=== PATIENT | male | born 1970 | race African-American/Black ===

== ENCOUNTER 2017-01-15 14:33 | Emergency (ER) | payer OTHER ==
[~2017-01-15] VITALS: Ht 180.3 cm; Wt 110.0 kg
[~2017-01-15 14:33] MED LIST: APIX5TAB PO; ENOX120P SQ; IBUP800T23 PO; INSU1.2I SQ; LANTUS2P SQ; LISI10TA3 PO; NOVOLOGSS SQ; VIST50CA PO
[2017-01-15 14:35] VITALS: BP 181/104; PULSE 88; RESP 17; TEMP 98.8; O2SAT 98
[2017-01-15] MEDS ORDERED: LISI-519 PO (16:44)
[2017-01-15] MEDS ORDERED: NORC5TAB PO (16:44)
[2017-01-15] MEDS ORDERED: KETOROLAC TROMETHAMINE 30 MG/ML (IVP) VIAL IV PUSH ONE (17:00)
[2017-01-15] MEDS ORDERED: ENALAPRILAT 1.25 MG/ML VIAL IV PUSH ONE (17:00)
--- NOTE | 2017-01-15 17:08 | PD ---
HPI Chief Complaint: Skin Problem Time Seen by Provider: 16:58 Travel History International Travel<30 days: No Contact w/Intl Traveler<30days: No Traveled to known affect area: No History of Present Illness HPI Patient is a 46-year-old male presenting to the emergency room for evaluation of bilateral lower extremity pain. Patient states he has diabetic ulcers and has not been able to go to the wound care clinic due to insurance issues. Patient has been changing the dressings himself. He reports increased drainage from the wounds. Additionally patient states that his blood sugars have been elevated, 590 last night, 359 this morning. He is out of his Lantus and NovoLog. He also reports being out of Eliquis for the last 5-6 days as well as lisinopril. Patient denies any fever, chills, chest pain, shortness of breath, headache, abdominal pain, dizziness. He does report frequent urination and increased thirst. PFSH Past Medical History Hx Anticoagulant Therapy: Yes (eliquis) Arthritis: No Asthma: No Autoimmune Disease: No Depression: Yes Heart Rhythm Problems: No Cancer: No High Cholesterol: Yes Chemotherapy: No Chest Pain: Yes Congestive Heart Failure: No COPD: No Cerebrovascular Accident: No Diabetes: Yes Diminished Hearing: No Deep Vein Thrombosis: Yes (BILAT LOWER EXTREMITIES) GERD: No Genitourinary: No Hiatal Hernia: No Hypertension: Yes Immune Disorder: No Kidney Stones: No Medical other: Yes (chronic ulcerations on his legs) Musculoskeletal: No Neurologic: No Psychiatric: Yes Reproductive: No Respiratory: Yes (PE X3) Immunizations Current: Yes Migraines: No Radiation Therapy: No Renal Failure: No Seizures: No Sickle Cell Disease: No Sleep Apnea: No Ulcer: No Past Surgical History Abdominal Surgery: No AICD: No Body Medical Devices: mili filter Cardiac Surgery: Yes (SVC FILTER PLACED IN 2010) Ear Surgery: No Endocrine Surgery: No Eye Surgery: Yes (left eye repair) Genitourinary Surgery: No Gynecologic Surgery: No Oral Surgery: No Pacemaker: No Thoracic Surgery: No Other Surgery: Yes Social History Alcohol Use: No Tobacco Use: No Substance Use: No (DENIES) Allergies-Medications (Allergen,Severity, Reaction): Coded Allergies: Tramadol (Verified Allergy, Mild, 01/15/17) PPD (Verified Allergy, Unknown, 01/15/17) *MDRO Multi-Drug Resistant Organism (Verified Adverse Reaction, Unknown, ) MRSA (wound) - 2010, 2011, 2012, 03/2016, 06/2016 Reported Meds & Prescriptions Reported Meds & Active Scripts Active Bactrim DS (Sulfamethoxazole-Trimethoprim) 800-160 Mg Tab 1 Tab PO BID Keflex (Cephalexin) 500 Mg Cap 500 Mg PO Q12H 10 Days Eliquis (Apixaban) 5 Mg Tab 10 Mg PO BID Lisinopril 10 Mg Tab 10 Mg PO DAILY Eliquis (Apixaban) 5 Mg Tab 5 Mg PO BID Tqake 2 tabs twice a day for 7 days(10mg twice daily for 7 days-each pill is 5mg) and then after 7 days 1 tablet twice daily. Lantus Inj (Insulin Glargine) 1,000 Unit/10 Ml Vial 45 Units SQ HS Novolog Inj (Insulin Aspart) 100 Unit/Ml Inj 10 Units SQ ACHS Reported [place] (Hydrocodone-Acetaminophen) 5-325 mg Tab 5 Tab PO Q6H PRN Lisinopril 5 Mg Tab 5 Mg PO DAILY Tojose miguel Solostar Pen Inj (Insulin Glargine) 300 Unit/Ml Pen 45 Units SQ HS Review of Systems Except as stated in HPI: all other systems reviewed are Neg General / Constitutional: No: Fever, Chills Eyes: No: Blurred Vision HENT: No: Headaches, Lightheadedness Cardiovascular: No: Chest Pain or Discomfort Respiratory: No: Shortness of Breath Gastrointestinal: No: Nausea, Abdominal Pain Genitourinary: Positive: Frequency, No: Incontinence, Pelvic Pain, Flank Pain Musculoskeletal: Positive: Myalgias, Pain (BLE) Skin: Positive Other (ulcerations on left and right lower legs) Neurologic: No: Dizziness, Syncope, Focal Abnormalities Endocrine: Positive: Polyuria Physical Exam Narrative GENERAL: Overweight, well-developed, alert gentleman. Resting comfortably in no acute distress. SKIN: Warm and dry. 11cmx 11cm ulceration to his left medial lower leg, 3cm x 2cm ulceration to medial aspect of right lower leg. Serosanguineous drainage noted on his dressings, mildly malodorous. HEAD: Atraumatic. Normocephalic. EYES: Pupils equal and round. No scleral icterus. No injection or drainage. ENT: No nasal bleeding or discharge. Mucous membranes pink and moist. NECK: Trachea midline. No JVD. CARDIOVASCULAR: Regular rate and rhythm. No murmur appreciated RESPIRATORY: No accessory muscle use. Clear to auscultation. Breath sounds equal bilaterally. GASTROINTESTINAL: Abdomen soft, non-tender, nondistended. Hepatic and splenic margins not palpable. MUSCULOSKELETAL: Extremities without clubbing, cyanosis, or edema. No obvious deformities. Positive pedal pulses. NEUROLOGICAL: Awake and alert. No obvious cranial nerve deficits. Motor grossly within normal limits. Five out of 5 muscle strength in the arms and legs. Normal speech. PSYCHIATRIC: Appropriate mood and affect; insight and judgment normal. Data Data Last Documented VS Vital Signs Date Time Temp Pulse Resp B/P Pulse Ox O2 Delivery O2 Flow Rate FiO2 01/15/17 19:04 73 12 120/80 98 01/15/17 17:35 Nasal Cannula 2 01/15/17 14:35 98.8 Orders Electrocardiogram (01/15/17 16:50) Complete Blood Count With Diff (01/15/17 16:50) Comprehensive Metabolic Panel (01/15/17 16:50) Prothrombin Time / Inr (Pt) (01/15/17 16:50) Act Partial Throm Time (Ptt) (01/15/17 16:50) Lactic Acid Sepsis Protocol (01/15/17 16:50) Magnesium (Mg) (01/15/17 16:50) Ckmb (Isoenzyme) Profile (01/15/17 16:50) Troponin I (01/15/17 16:50) Urinalysis - C+S If Indicated (01/15/17 16:50) Wound Culture And Gram Stain (01/15/17 16:50) Blood Glucose (01/15/17 16:50) Ecg Monitoring (01/15/17 16:50) Iv Access Insert/Monitor (01/15/17 16:50) Oximetry (01/15/17 16:50) Oxygen Administration (01/15/17 16:50) Us Leg Venous Doppler Bilat (01/15/17 ) Ketorolac Inj (Toradol Inj) (01/15/17 17:00) Enalaprilat Inj (Vasotec Inj) (01/15/17 17:00) CKMB (01/15/17 17:00) CKMB% (01/15/17 17:00) Insulin Human Regular Inj (Novolin R Inj (01/15/17 18:45) Apixaban (Eliquis) (01/15/17 19:30) Sodium Chlor 0.9% 1000 Ml Inj (Ns 1000 M (01/15/17 19:30) Blood Glucose (01/15/17 19:26) Sulfamet-Trimeth Ds 800-160 Mg (Bactrim (01/15/17 19:30) Cephalexin (Keflex) (01/15/17 19:30) Labs Laboratory Tests Test 01/15/17 17:00 White Blood Count 11.4 TH/MM3 Red Blood Count 4.65 MIL/MM3 Hemoglobin 12.5 GM/DL Hematocrit 38.1 % Mean Corpuscular Volume 81.9 FL Mean Corpuscular Hemoglobin 26.9 PG Mean Corpuscular Hemoglobin 32.9 % Concent Red Cell Distribution Width 13.9 % Platelet Count 301 TH/MM3 Mean Platelet Volume 9.0 FL Neutrophils (%) (Auto) 71.2 % Lymphocytes (%) (Auto) 20.8 % Monocytes (%) (Auto) 6.7 % Eosinophils (%) (Auto) 0.7 % Basophils (%) (Auto) 0.6 % Neutrophils # (Auto) 8.1 TH/MM3 Lymphocytes # (Auto) 2.4 TH/MM3 Monocytes # (Auto) 0.8 TH/MM3 Eosinophils # (Auto) 0.1 TH/MM3 Basophils # (Auto) 0.1 TH/MM3 CBC Comment DIFF FINAL Differential Comment Prothrombin Time 10.4 SEC Prothromb Time International 0.9 RATIO Ratio Activated Partial 25.7 SEC Thromboplast Time Urine Color LIGHT-YELLOW Urine Turbidity CLEAR Urine pH 6.0 Urine Specific [place] 1.033 Urine Protein NEG mg/dL Urine Glucose (UA) 1000 mg/dL Urine Ketones NEG mg/dL Urine Occult Blood NEG Urine Nitrite NEG Urine Bilirubin NEG Urine Urobilinogen LESS THAN 2.0 MG/DL Urine Leukocyte Esterase NEG Urine RBC 3 /hpf Urine WBC 1 /hpf Microscopic Urinalysis Comment CATH-CULT NOT IND Sodium Level 134 MEQ/L Potassium Level 4.1 MEQ/L Chloride Level 99 MEQ/L Carbon Dioxide Level 27.6 MEQ/L Anion Gap 7 MEQ/L Blood Urea Nitrogen 15 MG/DL Creatinine 1.71 MG/DL Estimat Glomerular Filtration 53 ML/MIN Rate Random Glucose 428 MG/DL Lactic Acid Level 1.4 mmol/L Calcium Level 9.1 MG/DL Magnesium Level 2.1 MG/DL Total Bilirubin 0.3 MG/DL Aspartate Amino Transf 7 U/L (AST/SGOT) Alanine Aminotransferase 13 U/L (ALT/SGPT) Alkaline Phosphatase 91 U/L Total Creatine Kinase 204 U/L Creatine Kinase MB 3.5 NG/ML Troponin I LESS THAN 0.02 NG/ML Total Protein 8.5 GM/DL Albumin 3.2 GM/DL MDM Medical Decision Making Medical Screen Exam Complete: Yes Emergency Medical Condition: Yes Medical Record Reviewed: Yes Interpretation(s) Last Impressions Lower Extremity Ultrasound 01/15/17 0000 Signed Impressions: Service Date/Time: Sunday, January 15, 2017 17:56 - CONCLUSION: This is similar to the comparison study. Pulmonary valve this is old echogenic thrombus. Correlation is suggested in this individual the vena cava filter in place. Karl Lerma MD FACR Laboratory Tests Test 01/15/17 17:00 White Blood Count 11.4 TH/MM3 Red Blood Count 4.65 MIL/MM3 Hemoglobin 12.5 GM/DL Hematocrit 38.1 % Mean Corpuscular Volume 81.9 FL Mean Corpuscular Hemoglobin 26.9 PG Mean Corpuscular Hemoglobin 32.9 % Concent Red Cell Distribution Width 13.9 % Platelet Count 301 TH/MM3 Mean Platelet Volume 9.0 FL Neutrophils (%) (Auto) 71.2 % Lymphocytes (%) (Auto) 20.8 % Monocytes (%) (Auto) 6.7 % Eosinophils (%) (Auto) 0.7 % Basophils (%) (Auto) 0.6 % Neutrophils # (Auto) 8.1 TH/MM3 Lymphocytes # (Auto) 2.4 TH/MM3 Monocytes # (Auto) 0.8 TH/MM3 Eosinophils # (Auto) 0.1 TH/MM3 Basophils # (Auto) 0.1 TH/MM3 CBC Comment DIFF FINAL Differential Comment Prothrombin Time 10.4 SEC Prothromb Time International 0.9 RATIO Ratio Activated Partial 25.7 SEC Thromboplast Time Urine Color LIGHT-YELLOW Urine Turbidity CLEAR Urine pH 6.0 Urine Specific [place] 1.033 Urine Protein NEG mg/dL Urine Glucose (UA) 1000 mg/dL Urine Ketones NEG mg/dL Urine Occult Blood NEG Urine Nitrite NEG Urine Bilirubin NEG Urine Urobilinogen LESS THAN 2.0 MG/DL Urine Leukocyte Esterase NEG Urine RBC 3 /hpf Urine WBC 1 /hpf Microscopic Urinalysis Comment CATH-CULT NOT IND Sodium Level 134 MEQ/L Potassium Level 4.1 MEQ/L Chloride Level 99 MEQ/L Carbon Dioxide Level 27.6 MEQ/L Anion Gap 7 MEQ/L Blood Urea Nitrogen 15 MG/DL Creatinine 1.71 MG/DL Estimat Glomerular Filtration 53 ML/MIN Rate Random Glucose 428 MG/DL Lactic Acid Level 1.4 mmol/L Calcium Level 9.1 MG/DL Magnesium Level 2.1 MG/DL Total Bilirubin 0.3 MG/DL Aspartate Amino Transf 7 U/L (AST/SGOT) Alanine Aminotransferase 13 U/L (ALT/SGPT) Alkaline Phosphatase 91 U/L Total Creatine Kinase 204 U/L Creatine Kinase MB 3.5 NG/ML Troponin I LESS THAN 0.02 NG/ML Total Protein 8.5 GM/DL Albumin 3.2 GM/DL Vital Signs Date Time Temp Pulse Resp B/P Pulse Ox O2 Delivery O2 Flow Rate FiO2 01/15/17 16:39 102 20 01/15/17 14:35 98.8 88 17 181/104 98 Differential Diagnosis Sepsis versus DVT versus DKA versus hypertension versus hyperglycemia versus other Narrative Course Patient is a 46-year-old male presenting to the emergency department for evaluation of pain in his lower legs as well as elevated blood sugar readings. Patient is supposed to be on Eliquis due to bilateral DVTs. He has been out for almost 6 days now. Patient is also out of his lisinopril and insulin. Labs and imaging ordered and pending. Bilateral venous Doppler ordered due to patient being off of his anticoagulants for an extended period of time. Patient has had no shortness of breath or chest pain. Bilateral lower extremity venous Dopplers showed no acute changes. Patient will be restarted on Eliquis at 10 mg loading dose for 7 days. First dose will be given now. CBC shows a white count of 11.4 with left shift Chemistry with a blood glucose of 428, creatinine 1.71, BUN is normal. Lactic acid 1.4, troponin less than 2. Urinalysis with elevated glucose Coags are normal Patient given 10 units of subcutaneous insulin as well as 1 L of IV fluids. Repeated blood glucose is Wound culture ordered and pending. Patient be given dose of Bactrim and Keflex now and will be provided with a prescription for home use. Historically patient has had pseudomonas, staph aureus, Escherichia coli, and group B strep and his wound cultures. Patient is advised to continue wound care, and to follow-up with his primary doctor for ongoing evaluation and management of his chronic wounds. Patient will be provided with a prescription refill for his insulin as well as lisinopril and a request. Discussed labs and imaging with by attending physician as well as treatment plan. 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 CKD (chronic kidney disease) Qualified Code: N18.9 - CKD (chronic kidney disease), unspecified stage Hypertension Qualified Code: I10 - Essential hypertension DVT, bilateral lower limbs Qualified Code: I82.503 - Chronic deep vein thrombosis (DVT) of both lower extremities, unspecified vein Referrals: Tara Burris MD 2 days Patient Instructions: Chronic Hypertension (ED), Chronic Wound Care (ED), Diabetic Hyperglycemia (DC), General Instructions Additional Instructions: Follow-up with your primary care provider Continue wound care as previously directed Complete full course of antibiotics as prescribed Return to the emergency department for any new or worsening symptoms Med/Other Pt SpecificInfo: Prescription(s) given Scripts Sulfamethoxazole-Trimethoprim (Bactrim DS)800-160 Mg Tab1 Tab PO BID #20 TAB Ref 0 Prov:Lydia Holly 01/15/17 Cephalexin (Keflex)500 Mg Oqi482 Mg PO Q12H 10 Days Ref 0 Prov:Lydia Holly 01/15/17 Apixaban (Eliquis)5 Mg Tab10 Mg PO BID #13 TAB Ref 0 Prov:Lydia Holly 01/15/17 Lisinopril 10 Mg Tab10 Mg PO DAILY #30 TAB Ref 0 Prov:Lydia Holly 01/15/17 Apixaban (Eliquis)5 Mg Tab5 Mg PO BID #60 TAB Ref 0 Tqake 2 tabs twice a day for 7 days(10mg twice daily for 7 days-each pill is 5mg) and then after 7 days 1 tablet twice daily. Prov:Lydia Holly 01/15/17 Insulin Glargine Inj (Lantus Inj)1,000 Unit/10 Ml Vial45 Units SQ HS #30 VIAL Ref 0 Prov:Lydia Holly 01/15/17 Insulin Aspart Inj (Novolog Inj)100 Unit/Ml Inj10 Units SQ ACHS #1 Ref 1 Prov:Lydia Holly 01/15/17 Disposition: 01 DISCHARGE HOME Condition: Stable Lydia Holly Jan 15, 2017 17:08
[2017-01-15 17:33] LABS: AUTOMATED NEUTROPHIL # 8.1 TH/MM3 (1.8-7.7); BASOPHIL # 0.1 TH/MM3 (0-0.2); BASOPHIL % 0.6 % (0.0-2.0); EOSINOPHIL # 0.1 TH/MM3 (0-0.4); EOSINOPHIL % 0.7 % (0.0-4.0); HEMATOCRIT 38.1 % (39.0-51.0); HEMO FLAGS DIFF FINAL; LYMPH % 20.8 % (9.0-44.0); LYMPHOCYTE # 2.4 TH/MM3 (1.0-4.8); MEAN CELL VOLUME 81.9 FL (80.0-100.0); MEAN CORPUSCULAR HEMOGLOBIN 26.9 PG (27.0-34.0); MEAN CORPUSCULAR HGB CONC 32.9 % (32.0-36.0); MONO % 6.7 % (0.0-8.0); NEUT % 71.2 % (16.0-70.0); PLATELET COUNT 301 TH/MM3 (150-450); RED BLOOD COUNT 4.65 MIL/MM3 (4.50-5.90); RED CELL DISTRIBUTION WIDTH 13.9 % (11.6-17.2); WHITE BLOOD COUNT 11.4 TH/MM3 (4.0-11.0)
[2017-01-15 17:35] LABS: BLOOD, URINE NEG (NEG); GLUCOSE,URINE 1000 mg/dL (NEG); KETONE, URINE NEG (NEG); NITRITE,URINE NEG (NEG); URINE COLOR LIGHT-YELLOW (YELLW/STRAW)
[2017-01-15 17:36] LABS: COMMENT (UR) CATH-CULT NOT IND; CULTURE IF INDICATED CATH CULTURE NOT IND
[2017-01-15 17:41] LABS: APTT (PATIENT) 25.7 SEC (24.3-30.1); INTERNATIONAL NORMALIZED RATIO 0.9 RATIO; PROTHROMBIN TIME - PATIENT 10.4 SEC (9.8-11.6)
[2017-01-15 18:07] LABS: ALKALINE PHOSPHATASE 91 U/L (45-117); ALT (GPT) 13 U/L (12-78); ANION GAP 7 MEQ/L (5-15); AST (GOT) 7 U/L (15-37); BICARBONATE 27.6 MEQ/L (21.0-32.0); BLOOD UREA NITROGEN 15 MG/DL (7-18); CHLORIDE 99 MEQ/L (98-107); CREATINE KINASE 204 U/L (39-308); GLOMERULAR FILTRATION RATE 53 ML/MIN (>89); MAGNESIUM 2.1 MG/DL (1.5-2.5); POTASSIUM 4.1 MEQ/L (3.5-5.1); SODIUM (NA) 134 MEQ/L (136-145); TOTAL BILIRUBIN ADULT 0.3 MG/DL (0.2-1.0)
[2017-01-15 18:33] LABS: CKMB 3.5 NG/ML (0.5-3.6)
[2017-01-15] MEDS ORDERED: INSULIN HUMAN REGULAR 1,000 UNITS/10 ML VIAL SQ ONE (18:45)
[2017-01-15 19:04] VITALS: BP 120/80; PULSE 73; RESP 12; O2SAT 98
--- NOTE | 2017-01-15 19:07 | RADRPT ---
EXAM DATE/TIME: 01/15/2017 17:56 [facility] COMPARISON: US LEG BILATERAL VENOUS DOPPLER, August 02, 2016, 1:07. INDICATIONS : Bilateral leg pain. MEDICAL HISTORY : Hypercholesterolemia. Hypertension. Deep venous thrombosis. Numbness. Neuropathy. Anticoagulant thera py. Pulmonary embolism. Diabetes. Hemophilia. Depression. MRSA. SURGICAL HISTORY : Superior vena cava filter. Right index finger repair with skin graft. SURGICAL HISTORY : Superior vena cava filter. Right index finger repair with skin graft. ENCOUNTER: Initial ACUITY: 3 weeks PAIN SCORE: 8/10 LOCATION: Bilateral legs. TECHNIQUE: Venous ultrasound of the left and right leg was performed from the inguinal ligament to the proximal calf. Real-time, color Doppler and spectral tracing, compression and augmentation techniques were us ed. FINDINGS: RIGHT LEG: There is occlusive thrombus in the right common femoral vein scattered to nonocclusive thrombus exten ding into the posterior tibial vein. LEFT LEG: There is normal compressibility of the deep venous system from the inguinal region to the proximal ca lf. No echogenic clot is seen in the lumen of the common femoral, femoral, popliteal, and posterior tibial veins. There is a normal response of the venous system to proximal and distal augmentation an d respiration. CONCLUSION: This is similar to the comparison study. Pulmonary valve this is old echogenic thrombus. Correlatio n is suggested in this individual the vena cava filter in place. Karl Lerma MD FACR on January 15, 2017 at 19:02 Board Certified Radiologist. This report was verified electronically.
[2017-01-15] MEDS ORDERED: CEPHALEXIN MONOHYDRATE 500 MG CAP PO ONE (19:30)
[2017-01-15] MEDS ORDERED: APIXABAN 5 MG TABLET PO ONE (19:30)
[2017-01-15] MEDS ORDERED: SULFAMETHOXAZOLE-TRIMETHOPRIM DS 800-160 MG TAB PO ONE (19:30)
[2017-01-15] MEDS ORDERED: SODIUM CHLOR 0.9% 1000 ML INJ 1,000 ML IV ONE (19:30)
[2017-01-15] MEDS ORDERED: BACT800T5 PO (19:38)
[2017-01-15] MEDS ORDERED: LISI10TA3 PO (19:38)
[2017-01-15] MEDS ORDERED: CEPH-460 PO (19:38)
[2017-01-15] MEDS ORDERED: APIX5TAB PO (19:38)
[2017-01-15] MEDS ORDERED: LANTUS2P SQ (19:38)
[2017-01-15] MEDS ORDERED: NOVOLOGSS SQ (19:38)
[2017-01-15] MEDS ORDERED: INSULIN DETEMIR 100 UNITS/ML VIAL SQ SCH (21:45)
[2017-01-15] MEDS ORDERED: INSULIN HUMAN NPH 1,000 UNITS/10 ML VIAL SQ ONE (21:45)
--- NOTE | 2017-01-16 11:43 | EKG ---
Date Performed: 01/15/2017 Time Performed: 17:57:46 PTAGE: 46 years EKG: Sinus rhythm INCOMPLETE RIGHT BUNDLE BRANCH BLOCK NONSPECIFIC ST ELEVATION BORDERLINE ECG PREVIOUS TRACING : 09/24/2016 01.48 DOCTOR: Ethan Husain Interpretating Date/Time 01/16/2017 11:38:40
== END 2017-01-15 22:45 | disposition home or self-care (01) ==
LOC: NEPC 14:33
DX: E11.622 Type 2 diabetes mellitus with other skin ulcer (principal); I12.9 Hypertensive chronic kidney disease with stage 1 through stage 4 chronic kidney disease, or unspecified chronic kidney disease; N18.9 Chronic kidney disease, unspecified; I82.503 Chronic embolism and thrombosis of unspecified deep veins of lower extremity, bilateral; E78.00 Pure hypercholesterolemia, unspecified; E11.65 Type 2 diabetes mellitus with hyperglycemia; B96.20 Unspecified Escherichia coli [E. coli] as the cause of diseases classified elsewhere; B95.1 Streptococcus, group B, as the cause of diseases classified elsewhere; R94.31 Abnormal electrocardiogram [ECG] [EKG]
CPT/HCPCS: 80053; 81001; 82550; 82552; 83605; 83735; 84484; 85025; 85610; 85730; 86403; 87070; 87077; 87186; 93005; 93970; 96372; 96374; 96375; 99285; J1815; J1885; J7030

== ENCOUNTER 2018-02-25 23:20 | Observation (INO) | payer MEDICAID, OTHER ==
[~2018-02-25 23:20] MED LIST changes: +BACT800T5 PO; +CEPH-460 PO; -ENOX120P SQ; -IBUP800T23 PO; +LISI-519 PO; +NORC5TAB PO; -VIST50CA PO
[2018-02-25 23:25] VITALS: BP 181/93; PULSE 104; RESP 17; TEMP 98.4; O2SAT 99
[2018-02-25] MEDS ORDERED: LANTUS2P SQ (23:38)
[2018-02-26] VITALS (8 sets, daily range): BP systolic 117–152; BP diastolic 65–98; PULSE 79–93; RESP 14–21; TEMP 97.4–99.1; O2SAT 96–99
--- NOTE | 2018-02-26 00:01 | PD ---
HPI Chief Complaint: Diabetic Time Seen by Provider: 23:46 Travel History International Travel<30 days: No Contact w/Intl Traveler<30days: No Traveled to known affect area: No History of Present Illness HPI The patient is a 48 year old male who presents to the [facility] emergency department with a history of increasing problems with his blood sugar for the last 2 weeks. He last saw his primary care physician a month ago. He reports that he is on a regimen of Novolog 10 Units bid and Lantus 52 U qhs. His blood sugar tonight is 388. He last administered Novolog Sunday AM. He did not administer the afternoon dose due to leg pains. His last Lantus dose was Sunday night. He has chronic ulceration of bilateral legs that is been present for the last year although increasingly painful also over the last couple of weeks. He has not been in wound care for the last year. He reports that he is trying to get into a wound care clinic, however he is having difficulties getting approved through his insurance. He denies having any known fevers. He reports that recently he has noticed a yellow to green drainage on his bandage. He reports that he has had increased moisture from the wounds requiring him to change his bandage twice daily. He is not currently on any antibiotic. On review of systems otherwise, the patient denies having any recent cough or congestion, neck pain, chest pain, shortness of breath, abdominal pain, vomiting , diarrhea, urinary symptoms, or neurologic symptoms. His last BM was on Sunday. He has chronic constipation and he is on [place] for chronic pain in his ulcers. [facility] Past Medical History Narrative Medical The patient's past medical history is significant for diabetes mellitus, chronic leg ulceration, hyperlipidemia, DVT, depression Hx Anticoagulant Therapy: Yes (eliquis) Arthritis: No Asthma: No Autoimmune Disease: No Depression: Yes Heart Rhythm Problems: No Cancer: No Cardiovascular Problems: Yes High Cholesterol: Yes Chemotherapy: No Chest Pain: Yes Congestive Heart Failure: No COPD: No Cerebrovascular Accident: No Diabetes: Yes Patient Takes Glucophage: No Diminished Hearing: No Deep Vein Thrombosis: Yes (BILAT LOWER EXTREMITIES) Endocrine: Yes GERD: No Genitourinary: No Hiatal Hernia: No Hypertension: Yes Immune Disorder: No Kidney Stones: No Musculoskeletal: No Neurologic: No Psychiatric: Yes Reproductive: No Respiratory: Yes (PE X3) Immunizations Current: Yes Migraines: No Radiation Therapy: No Renal Failure: No Seizures: No Sickle Cell Disease: No Sleep Apnea: No Ulcer: No Past Surgical History Narrative Surgical The patient's past surgical history is significant for Mili filter placement, eye surgery, left index finger surgery. Abdominal Surgery: No AICD: No Body Medical Devices: mili filter Cardiac Surgery: Yes (IVC FILTER PLACED IN 2010) Ear Surgery: No Endocrine Surgery: No Eye Surgery: Yes (left eye repair) Genitourinary Surgery: No Gynecologic Surgery: No Oral Surgery: No Pacemaker: No Thoracic Surgery: No Other Surgery: Yes Social History Alcohol Use: No Tobacco Use: No Substance Use: No (DENIES) Allergies-Medications (Allergen,Severity, Reaction): Coded Allergies: tramadol (Unverified Allergy, Mild, 02/25/18) tuberculin, purified protein deriva (Unverified Allergy, Unknown, 02/25/18) *MDRO Multi-Drug Resistant Organism (Verified Adverse Reaction, Unknown, ) MRSA (wound) - 2010, 2011, 2012, 03/2016, 06/2016 Reported Meds & Prescriptions Reported Meds & Active Scripts Active Novolog Inj (Insulin Aspart) 100 Unit/Ml Inj 10 Units SQ ACHS Reported Lantus Inj (Insulin Glargine) 1,000 Unit/10 Ml Vial 52 Units SQ HS [place] (Hydrocodone-Acetaminophen) 5-325 mg Tab 5 Tab PO Q6H PRN Review of Systems Except as stated in HPI: all other systems reviewed are Neg General / Constitutional: No: Fever Eyes: No: Visual changes HENT: No: Headaches Cardiovascular: No: Chest Pain or Discomfort Respiratory: No: Shortness of Breath Gastrointestinal: No: Nausea, Vomiting, Diarrhea, Abdominal Pain Genitourinary: No: Dysuria Musculoskeletal: Positive: Pain Skin: No Rash Neurologic: No: Weakness, Focal Abnormalities, Change in Mentation, Slurred Speech, Sensory Disturbance Psychiatric: No: Depression Endocrine: Positive: Polyuria, Polydipsia Hematologic/Lymphatic: No: Easy Bruising Physical Exam Narrative General: The patient is a well-developed well-nourished male in no acute distress. Head and Neck exam: Head is normocephalic atraumatic. Eyes: EOMI, pupils are equal round and reactive to light. Nose: Midline septum with pink mucous membranes Mouth: Dentition unremarkable. Moist mucus membranes. Posterior oropharynx is not erythematous. No tonsillar hypertrophy. Uvula midline. Airway patent. Neck: No palpable lymphadenopathy. No nuchal rigidity. No thyromegaly. Cardiovascular: Sinus tachycardia in the low 100 without murmurs, gallops, or rubs. No pulse deficit to the extremities on simultaneous auscultation and palpation of his radial artery. Lungs: Clear to auscultation bilaterally. No wheezes, rhonchi, or rales. Abdomen: Soft, without tenderness to palpation in all 4 quadrants of the abdomen. No guarding, rebound, or rigidity. Normal bowel sounds are audible. No tenderness on palpation of McBurney's point. Negative Mcfadden sign. Extremities: No clubbing or cyanosis. The patient has 1+ edema bilateral lower extremities. The patient denies calf tenderness on palpation. The patient has dressings in place over bilateral lower extremities below the knee. On the right medial leg the patient is noted to have a 3 x 4 area of ulceration. On the left leg, the patient has 3 areas of ulceration, the worst is along the medial aspect and is 14.5 x 5 cm, along the posterior leg is a 3 x 4 cm additional 1, and along the distal ankle a 1.5 x 3 cm wound. The patient has pink granulation tissue noted. The patient has drainage noted from the left wound which was cultured with a wound culture. 2+ pulses in all 4 extremities. Back: No costovertebral angle tenderness to palpation. Neurologic Exam: Grossly nonfocal. Skin Exam: No rash noted. Intact skin that is warm and dry. Data Data Last Documented VS Vital Signs Date Time Temp Pulse Resp B/P (MAP) Pulse Ox O2 Delivery O2 Flow Rate FiO2 02/26/18 02:04 93 16 138/81 (100) 97 Room Air 02/25/18 23:25 98.4 Orders Orders Electrocardiogram (02/25/18 23:52) Complete Blood Count With Diff (02/25/18 23:52) Comprehensive Metabolic Panel (02/25/18 23:52) C-Reactive Protein (Crp) (02/25/18 23:52) Lipase (02/25/18 23:52) Urinalysis - C+S If Indicated (02/25/18:) Magnesium (Mg) (02/25/18 23:52) Blood Gas Venous Ph (02/25/18 23:52) Beta Hydroxybutyrate (Acetone) (02/25/18 23:52) Chest, Single Ap (02/25/18 23:52) Iv Access Insert/Monitor (02/25/18 23:52) Ecg Monitoring (02/25/18 23:52) Oximetry (02/25/18 23:52) Blood Glucose (02/25/18 23:52) Sodium Chlor 0.9% 1000 Ml Inj (Ns 1000 M (02/26/18 00:00) Wound Culture And Gram Stain (02/26/18 02:03) Sodium Chlor 0.9% 1000 Ml Inj (Ns 1000 M (02/26/18 02:45) Insulin Human Regular Inj (Novolin R Inj (02/26/18 02:45) Admit Order (Ed Use Only) (02/26/18 02:44) Piperacil-Tazo 3.375 Gm Premix (Zosyn 3. (02/26/18 02:45) Vancomycin Inj (Vancomycin Inj) (02/26/18 02:45) Place In Observation (02/26/18 ) Vital Signs (Adult) Q4H (02/26/18 02:47) Activity Oob With Assistance (02/26/18 02:47) Diet 1800 Ada Cons Carb (02/26/18 Breakfast) Sodium Chloride 0.9% Flush (Ns Flush) (02/26/18 03:00) Sodium Chloride 0.9% Flush (Ns Flush) (02/26/18 09:00) Acetaminophen (Tylenol) (02/26/18 03:00) Basic Metabolic Panel (Bmp) (02/27/18 06:00) Complete Blood Count With Diff (02/27/18 06:00) Enoxaparin Inj (Lovenox Inj) (02/26/18 09:00) Naloxone Inj (Narcan Inj) (02/26/18 03:00) Magnesium Hydroxide Liq (Milk Of Magnesi (02/26/18 03:00) Sennosides (Senokot) (02/26/18 03:00) Bisacodyl Supp (Dulcolax Supp) (02/26/18 03:00) Lactulose Liq (Lactulose Liq) (02/26/18 03:00) Consult Wound / Ostomy Nurse (02/26/18 ) Blood Glucose Goal (Criteria) (02/26/18 02:47) Hypoglycemia 70 Mg/Dl Or < (02/26/18 02:47) Notify Dr: Other (02/26/18 02:47) Dextrose 50% In Lionel (Vial) Inj (D50w (Vi (02/26/18 03:00) Glucagon Inj (Glucagon Inj) (02/26/18 03:00) Insulin Aspart Supplemtl Scale (Novolog (02/26/18 08:00) Insulin Aspart Inj (Novolog Inj) (02/26/18 08:00) Insulin Detemir Inj (Levemir Inj) (02/26/18 09:00) Ondansetron Odt (Zofran Odt) (02/26/18 03:15) Labs Laboratory Tests Test 02/26/18 00:10 02/26/18 02:45 White Blood Count 10.4 TH/MM3 Red Blood Count 4.93 MIL/MM3 Hemoglobin 13.5 GM/DL Hematocrit 41.3 % Mean Corpuscular Volume 83.7 FL Mean Corpuscular Hemoglobin 27.3 PG Mean Corpuscular Hemoglobin Concent 32.6 % Red Cell Distribution Width 14.6 % Platelet Count 253 TH/MM3 Mean Platelet Volume 9.6 FL Neutrophils (%) (Auto) 56.0 % Lymphocytes (%) (Auto) 34.2 % Monocytes (%) (Auto) 7.8 % Eosinophils (%) (Auto) 1.1 % Basophils (%) (Auto) 0.9 % Neutrophils # (Auto) 5.9 TH/MM3 Lymphocytes # (Auto) 3.6 TH/MM3 Monocytes # (Auto) 0.8 TH/MM3 Eosinophils # (Auto) 0.1 TH/MM3 Basophils # (Auto) 0.1 TH/MM3 CBC Comment DIFF FINAL Differential Comment Venous Blood pH 7.38 Blood Urea Nitrogen 15 MG/DL Creatinine 1.89 MG/DL Random Glucose 420 MG/DL Total Protein 9.1 GM/DL Albumin 3.5 GM/DL Calcium Level 9.2 MG/DL Magnesium Level 2.2 MG/DL Alkaline Phosphatase 94 U/L Aspartate Amino Transf (AST/SGOT) 11 U/L Alanine Aminotransferase (ALT/SGPT) 16 U/L Total Bilirubin 0.4 MG/DL Sodium Level 132 MEQ/L Potassium Level 4.0 MEQ/L Chloride Level 98 MEQ/L Carbon Dioxide Level 24.0 MEQ/L Anion Gap 10 MEQ/L Estimat Glomerular Filtration Rate 47 ML/MIN C-Reactive Protein 0.59 MG/DL Lipase 1082 U/L B-Hydroxybutyrate 0.07 MMOL/L Urine Color YELLOW Urine Turbidity CLEAR Urine pH 6.0 Urine Specific [place] 1.035 Urine Protein TRACE mg/dL Urine Glucose (UA) 500 mg/dL Urine Ketones NEG mg/dL Urine Occult Blood TRACE Urine Nitrite NEG Urine Bilirubin NEG Urine Urobilinogen 1.0 MG/DL Urine Leukocyte Esterase TRACE Urine RBC 2 /hpf Urine WBC 5 /hpf Urine Squamous Epithelial Cells <1 /hpf Microscopic Urinalysis Comment CULT NOT INDICATED MDM Medical Decision Making Medical Screen Exam Complete: Yes Emergency Medical Condition: Yes Medical Record Reviewed: Yes Differential Diagnosis Infected diabetic ulcer, versus poor diabetic ulcer healing from medication noncompliance Narrative Course During the course of the patient's emergency department visit, the patient's history, examination, and differential diagnosis were reviewed with the patient. The patient was placed on a quality assurance monitor final with oximetry and frequent blood pressure monitoring. The patient had IV access obtained and blood work sent for analysis. The patient had a EKG done on arrival that shows a sinus tachycardia rate of 103, QRS duration is 102 ms, QTC [address] segment elevation is noted. The patient was initially provided normal saline 1 L IV fluid bolus, Zosyn 3.375 g IV, vancomycin 1 g IV. The patient's laboratory studies were reviewed and remarkable for a white count of 10.4, hemoglobin 13.5, platelets 253 with a normal differential, CMP is remarkable for sodium of 132, creatinine 1.89, glucose 420, AST 11, C-reactive protein is slightly elevated at 0.59, lipase is elevated at 1082, beta hydroxybutyrate is 0.07, urinalysis is unremarkable. The patient was given regular insulin 10 units subcutaneously 1. The patient was given a second liter of normal saline IV fluids. Radiology studies were reviewed and remarkable for a chest x-ray that shows a stable mid inspiratory chest exam. The patient's results were discussed with the patient, including the plan of care. I explained that further testing and/ or monitoring is indicated based on the patient's history, examination, and/ or laboratory findings. Therefore, I recommended admission for additional evaluation. The patient expressed understanding and was agreeable with this plan. The patient was admitted to the hospital in stable condition and [facility]. Sepsis Criteria SIRS Criteria (2 or more): Heart rate over 90 Physician Communication Physician Communication The patient's case including history, pertinent physical examination findings, and laboratory studies were discussed with Dr. Ma. It was agreed that the [facility] Diagnosis Primary Impression: Venous stasis ulcers of both lower extremities Additional Impression: Poorly controlled diabetes mellitus Admitting Information Admitting Physician Requests: Observation Anay Rainey MD February 26, 2018 00:01
--- NOTE | 2018-02-26 00:17 | RADRPT ---
EXAM DATE/TIME: 02/25/2018 23:58 [place] COMPARISON: CHEST SINGLE AP, August 01, 2016, 23:32. INDICATIONS : Short of breath. MEDICAL HISTORY : None. SURGICAL HISTORY : None. ENCOUNTER: Initial ACUITY: 1 day PAIN SCORE: 0/10 LOCATION: Bilateral chest FINDINGS: A single AP portable semierect view of the chest was obtained. The study remains Midinspiratory with crowding of the lung vasculature. There are no confluent infiltrates or effusions. The heart size at the upper limits of normal. The bony thorax is intact with overlying electrocardiogram leads. CONCLUSION: Stable Midinspiratory chest exam. Micky Mckenna MD on February 26, 2018 at 0:15 Board Certified Radiologist. This report was verified electronically.
[2018-02-26 00:25] LABS: AUTOMATED NEUTROPHIL # 5.9 TH/MM3 (1.8-7.7); BASOPHIL # 0.1 TH/MM3 (0-0.2); BASOPHIL % 0.9 % (0.0-2.0); EOSINOPHIL # 0.1 TH/MM3 (0-0.4); EOSINOPHIL % 1.1 % (0.0-4.0); HEMATOCRIT 41.3 % (39.0-51.0); HEMOGLOBIN 13.5 GM/DL (13.0-17.0); LYMPH % 34.2 % (9.0-44.0); LYMPHOCYTE # 3.6 TH/MM3 (1.0-4.8); MEAN CELL VOLUME 83.7 FL (80.0-100.0); MEAN CORPUSCULAR HEMOGLOBIN 27.3 PG (27.0-34.0); MEAN CORPUSCULAR HGB CONC 32.6 % (32.0-36.0); MEAN PLATELET VOLUME 9.6 FL (7.0-11.0); MONO % 7.8 % (0.0-8.0); MONOCYTE # 0.8 TH/MM3 (0-0.9); PLATELET COUNT 253 TH/MM3 (150-450); RED BLOOD COUNT 4.93 MIL/MM3 (4.50-5.90); RED CELL DISTRIBUTION WIDTH 14.6 % (11.6-17.2); WHITE BLOOD COUNT 10.4 TH/MM3 (4.0-11.0)
[2018-02-26 01:03] LABS: ALBUMIN 3.5 GM/DL (3.4-5.0); ALKALINE PHOSPHATASE 94 U/L (45-117); ALT (GPT) 16 U/L (12-78); AST (GOT) 11 U/L (15-37); BLOOD UREA NITROGEN 15 MG/DL (7-18); C-REACTIVE PROTEIN 0.59 MG/DL (0.00-0.30); CALCIUM 9.2 MG/DL (8.5-10.1); CHLORIDE 98 MEQ/L (98-107); CREATININE 1.89 MG/DL (0.60-1.30); GLOMERULAR FILTRATION RATE 47 ML/MIN (>89); GLUCOSE,RANDOM 420 MG/DL (74-106); MAGNESIUM 2.2 MG/DL (1.5-2.5); SODIUM (NA) 132 MEQ/L (136-145); TOTAL BILIRUBIN ADULT 0.4 MG/DL (0.2-1.0); TOTAL PROTEIN 9.1 GM/DL (6.4-8.2)
[2018-02-26] MEDS ORDERED: SODIUM CHLOR 0.9% 1000 ML INJ 1,000 ML IV ONE ×2 (02:45)
[2018-02-26] MEDS ORDERED: INSULIN HUMAN REGULAR 1,000 UNITS/10 ML VIAL SQ ONE (02:45)
[2018-02-26] MEDS ORDERED: VANCOMYCIN INJ 1,000 MG in SODIUM CHLOR 0.9% 250 ML INJ 250 ML IV ONE (02:45)
[2018-02-26] MEDS ORDERED: PIPERACIL-TAZO 3.375 GM PREMIX 50 ML IV ONE (02:45)
[2018-02-26 02:57] LABS: BILIRUBIN, URINE NEG (NEG); GLUCOSE,URINE 500 mg/dL (NEG); KETONE, URINE NEG (NEG); NITRITE,URINE NEG (NEG); URINE COLOR YELLOW (YELLW/STRAW); URINE LEUKOCYTE ESTERASE TRACE (NEG)
[2018-02-26 02:59] LABS: SQUAMOUS EPITHELIAL CELL URINE <1 /hpf (0-5)
[2018-02-26 03:00] LABS: BLOOD, URINE TRACE (NEG)
[2018-02-26] MEDS ORDERED: MAGNESIUM HYDROXIDE SUSP 30 ML CUP PO PRN (03:00)
[2018-02-26] MEDS ORDERED: SODIUM CHLORIDE 0.9% FLUSH 10 ML FLUSH IV FLUSH PRN (03:00)
[2018-02-26] MEDS ORDERED: DEXTROSE 50% IN WATER 50 ML VIAL(D50) IV PUSH PRN (03:00)
[2018-02-26] MEDS ORDERED: SENNOSIDES 8.6 MG TAB PO PRN (03:00)
[2018-02-26] MEDS ORDERED: GLUCAGON 1 MG/ML VIAL OTHER PRN (03:00)
[2018-02-26] MEDS ORDERED: ACETAMINOPHEN 325 MG TAB PO PRN (03:00)
[2018-02-26] MEDS ORDERED: BISACODYL 10 MG SUPP RECTAL PRN (03:00)
[2018-02-26] MEDS ORDERED: LACTULOSE SYRUP 20 GM/30 ML CUP PO PRN (03:00)
[2018-02-26] MEDS ORDERED: NALOXONE HCL 0.4 MG/ML AMP IV PUSH PRN (03:00)
[2018-02-26] MEDS ORDERED: ONDANSETRON ODT 4 MG TAB PO PRN (03:15)
--- NOTE | 2018-02-26 04:24 | HHI.HP ---
HPI Service [facility] Primary Care Physician Yves Wilks MD Admission Diagnosis Poorly controlled DM, Infected chronic left leg ulcer Diagnoses: Chief Complaint: Lower extremity wound Travel History International Travel<30 Days: No Contact w/Intl Traveler <30 Da: No Traveled to Known Affected Are: No History of Present Illness Mr. Wade is a pleasant 48-year-old -[place] male with a history of diabetes mellitus who presents to the emergency department today due to bilateral lower extremity wound. His wounds have been present for almost 2 years. However due to worsening pain and drainage he decided to come to the emergency department today. He denies any fever or chills. He has seen his primary care physician regarding his chronic wound but has been unable to obtain care at the wound care clinic. Patient denies any chest pain, shortness of breath, abdominal pain. No changes in bowel or bladder habits. Review of Systems Except as stated in HPI: all other systems reviewed are Neg Past Family Social History Past Medical History diabetes mellitus, chronic leg ulceration, hyperlipidemia, DVT, depression Past Surgical History left eye surgery, left index finger surgery. Reported Medications Novolog Inj (Insulin Aspart) 100 Unit/Ml Inj 10 Units SQ ACHS Reported Lantus Inj (Insulin Glargine) 1,000 Unit/10 Ml Vial 52 Units SQ HS [place] (Hydrocodone-Acetaminophen) 5-325 mg Tab 5 Tab PO Q6H PRN Allergies: Coded Allergies: tramadol (Unverified Allergy, Mild, 02/25/18) tuberculin, purified protein deriva (Unverified Allergy, Unknown, 02/25/18) *MDRO Multi-Drug Resistant Organism (Verified Adverse Reaction, Unknown, ) MRSA (wound) - 2010, 2011, 2012, 03/2016, 06/2016 Family History No family history of heart disease, cancer, diabetes mellitus. Social History Alcohol Use: No Tobacco Use: No Substance Use: No Physical Exam Vital Signs Vital Signs Date Time Temp Pulse Resp B/P (MAP) Pulse Ox O2 Delivery O2 Flow Rate FiO2 02/26/18 04:02 79 14 152/98 (116) 98 Room Air 02/26/18 02:04 93 16 138/81 (100) 97 Room Air 02/26/18 00:16 14 98 Room Air 02/25/18 23:25 98.4 104 17 181/93 (122) 99 Physical Exam GENERAL: This is a well-nourished, well-developed patient, in no apparent distress. SKIN: Multiple ulcerations noted on bilateral lower extremity. Largest one being on the left medial lower extremity below knee. HEAD: Atraumatic. Normocephalic. No temporal or scalp tenderness. EYES: Pupils equal round and reactive. No injection or drainage. ENT: Nose without bleeding, purulent drainage or septal hematoma. Airway patent. NECK: Trachea midline. No lymphadenopathy. Supple, nontender, no meningeal signs. CARDIOVASCULAR: Regular rate and rhythm without murmurs, gallops, or rubs. No JVD. RESPIRATORY: Clear to auscultation. Breath sounds equal bilaterally. No wheezes , rales, or rhonchi. GASTROINTESTINAL: Abdomen soft, non-tender, nondistended. No guarding. MUSCULOSKELETAL: Extremities without clubbing, cyanosis, or edema. NEUROLOGICAL: Awake and alert. Cranial nerves II through XII intact. No focal neurological deficits. Normal speech. Laboratory Laboratory Tests Test 02/26/18 00:10 02/26/18 02:45 White Blood Count 10.4 Red Blood Count 4.93 Hemoglobin 13.5 Hematocrit 41.3 Mean Corpuscular Volume 83.7 Mean Corpuscular Hemoglobin 27.3 Mean Corpuscular Hemoglobin Concent 32.6 Red Cell Distribution Width 14.6 Platelet Count 253 Mean Platelet Volume 9.6 Neutrophils (%) (Auto) 56.0 Lymphocytes (%) (Auto) 34.2 Monocytes (%) (Auto) 7.8 Eosinophils (%) (Auto) 1.1 Basophils (%) (Auto) 0.9 Neutrophils # (Auto) 5.9 Lymphocytes # (Auto) 3.6 Monocytes # (Auto) 0.8 Eosinophils # (Auto) 0.1 Basophils # (Auto) 0.1 CBC Comment DIFF FINAL Differential Comment Venous Blood pH 7.38 Blood Urea Nitrogen 15 Creatinine 1.89 Random Glucose 420 Total Protein 9.1 Albumin 3.5 Calcium Level 9.2 Magnesium Level 2.2 Alkaline Phosphatase 94 Aspartate Amino Transf (AST/SGOT) 11 Alanine Aminotransferase (ALT/SGPT) 16 Total Bilirubin 0.4 Sodium Level 132 Potassium Level 4.0 Chloride Level 98 Carbon Dioxide Level 24.0 Anion Gap 10 Estimat Glomerular Filtration Rate 47 C-Reactive Protein 0.59 Lipase 1082 B-Hydroxybutyrate 0.07 Urine Color YELLOW Urine Turbidity CLEAR Urine pH 6.0 Urine Specific [place] 1.035 Urine Protein TRACE Urine Glucose (UA) 500 Urine Ketones NEG Urine Occult Blood TRACE Urine Nitrite NEG Urine Bilirubin NEG Urine Urobilinogen 1.0 Urine Leukocyte Esterase TRACE Urine RBC 2 Urine WBC 5 Urine Squamous Epithelial Cells <1 Microscopic Urinalysis Comment CULT NOT INDICATED Result Diagram: 02/26/18 0010 02/26/18 0010 Imaging Last Impressions Chest X-Ray 02/25/18 9867 Signed Impressions: Service Date/Time: Sunday, February 25, 2018 23:58 - CONCLUSION: Stable Midinspiratory chest exam. MD Nathan Marmolejo VTE Risk Assessment Nathan VTE Risk Assessment: Mod/High Risk (score >= 2) Caprini Risk Assessment Model Point Value = 1 Point Value = 2 Point Value = 3 Point Value = 5 Age 41-60 Minor surgery BMI > 25 kg/m2 Swollen legs Varicose veins or History of unexplained or recurrent spontaneous Oral contraceptives or hormone replacement Sepsis (< 1 month) Serious lung disease, including pneumonia (< 1 month) Abnormal pulmonary function Acute myocardial infarction Congestive heart failure (< 1 month) History of inflammatory bowel disease Medical patient at bed rest Age 61-74 Arthroscopic surgery Major open surgery (> 45 min) Laparoscopic surgery (> 45 min) Malignancy Confined to bed (> 72 hours) Immobilizing plaster cast Central venous access Age >= 75 History of VTE Family history of VTE Factor V Leiden Prothrombin [id number] Lupus anticoagulant Anticardiolipin antibodies Elevated serum homocysteine Heparin-induced thrombocytopenia Other congenital or acquired thrombophilia Stroke (< 1 month) Elective arthroplasty Hip, pelvis, or leg fracture Acute spinal cord injury (< 1 month) Prophylaxis Regimen Total Risk Factor Score Risk Level Prophylaxis Regimen 0-1 Low Early ambulation 2 Moderate Order ONE of the following: *Sequential Compression Device (SCD) *Heparin 5000 units SQ BID 3-4 Higher Order ONE of the following medications: *Heparin 5000 units SQ TID *Enoxaparin/Lovenox 40 mg SQ daily (WT < 150 kg, CrCl > 30 mL/min) *Enoxaparin/Lovenox 30 mg SQ daily (WT < 150 kg, CrCl > 10-29 mL/min) *Enoxaparin/Lovenox 30 mg SQ BID (WT < 150 kg, CrCl > 30 mL/min) AND/OR *Sequential Compression Device (SCD) 5 or more Highest Order ONE of the following medications: *Heparin 5000 units SQ TID (Preferred with Epidurals) *Enoxaparin/Lovenox 40 mg SQ daily (WT < 150 kg, CrCl > 30 mL/min) *Enoxaparin/Lovenox 30 mg SQ daily (WT < 150 kg, CrCl > 10-29 mL/min) *Enoxaparin/Lovenox 30 mg SQ BID (WT < 150 kg, CrCl > 30 mL/min) AND *Sequential Compression Device (SCD) Assessment and Plan Problem List: (1) DM (diabetes mellitus) ICD Code: E11.9 - Type 2 diabetes mellitus without complications Status: Acute (2) CKD (chronic kidney disease) ICD Code: N18.9 - Chronic kidney disease, unspecified Status: Acute (3) DVT, bilateral lower limbs ICD Code: I82.403 - Acute embolism and thrombosis of unspecified deep veins of lower extremity, bilateral Status: Acute Assessment and Plan Mr. Wade is a pleasant 48-year-old -[place] male with a history of diabetes mellitus and previous history of DVT who presents to the emergency department due to worsening pain of his chronic bilateral lower extremity own. Patient denies any chest pain, shortness of breath, fever or chills. 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 - Will consult Wound care. If needed, we can consult wound care physician or Plastic surgery. - Acetaminophen, tramadol for pain. Diabetes mellitus - Medium sliding scale insulin, pre-meal insulin with aspart, Levemir 25 units twice daily. - Blood glucose improved TO 289. It was 420 upon admission. Hypertension - Will start patient on Nifedipine 30mg Qday. Titrate up as needed. Mild CAESAR on CKD - Creatinine 1.89. Baseline appears to be around 1.5 - 1.6. - Will avoid Lisinopril or Losartan for now. If improves, we will consider Losartain or Lisinopril. Full code. Julissa Richardson DO February 26, 2018 4:24 am
[2018-02-26] MEDS ORDERED: traMADol HCL 50 MG TAB PO PRN (04:30)
[2018-02-26] MEDS ORDERED: INSULIN DETEMIR 100 UNITS/ML VIAL SQ SCH (09:00)
[2018-02-26] MEDS ORDERED: ENOXAPARIN SODIUM 40 MG/0.4 ML SYRINGE SQ SCH (09:00)
[2018-02-26] MEDS: SODIUM HYPOCHLORITE 0.125% 500 ML BTL TOPICAL SCH ×2 (09:00→22:36)
[2018-02-26] MEDS ORDERED: ENOXAPARIN SODIUM 30 MG/0.3 ML SYRINGE SQ SCH (09:00)
--- NOTE | 2018-02-26 09:19 | PD.WCN.NOT ---
Wound Consult Description: Consult for WOUND MANAGEMENT of bilateral lower ext per Dr Ma. Communicated with: CORINA Gorman Patient Dr Negron Recommendation: BID to Bilateral Lower Extremities: Cleanse all lower extremity wounds with NS and gauze. Soak gauze in Dakins 0.125% solution and squeeze out excess. Fluff Dakins moistened gauze and place in wound beds only, DO NOT cover intact periwounds. Cover moistened gauze dressing with 4x4's and secure with rolled gauze and tape. Do not put tape on skin. Additional Information: Patient seen in [facility] for bilateral lower extremities. Right medial malleolus wound measures 1.7cm x 2.3cm x 0.4cm of ~80% red moist tissue and ~20% yellow tissue with well defined open wound margins and dry scaling periwound. Wound was cleansed with NS and gauze. Wound has no odor and no active drainage. Moist to dry dressing was placed until orders could be obtained. Left inferior medial calf wound measures 14.2cm x 6.5cm x 0.8cm of ~80% red moist tissue and ~20% yellow tissue with irregularly shaped,well defined, open wound margins and pink scar tissue noted to periwound. Wound was cleansed with NS and gauze. Cultures taken of wound bed as ordered. Wound has no active drainage and no odor noted. Left anterior medial malleolus wound measures 1.1cm x 2.6cm x 0.5cm of ~70% red/ pink moist tissue and ~30% yellow tissue with well defined wound margins. Periwound is noted with a wound on the malleolus measuring 0.5cm x 0.6cm x 0.3cm of 100% red moist tissue. There is no active drainage and no odor noted to either of these 2 wounds. Wounds were cleansed with NS and gauze. Left posterior inferior calf wound measures 3.2cm x 3.5cm x 0.5cm of ~95% red moist tissue and ~5% yellow tissue noted in wound bed with well defined wound margins. Periwound is unremarkable. Wound was cleansed with NS and gauze. No active drainage and no odor noted to wound bed. Left leg wounds were dressed with Dakins moistened gauze to dry cover and should be changed BID and PRN for saturation or dislodgement and communicated with Dr Negron with previous wound cultures last month showing E. coli and Strep group B. Awaiting current cultures taken today. May need SANTOS's for unna boot application with Puracol dressings (patient states these were ordered by Dr Burris previously) should wound cultures come back unremarkable this may be an option. Minna Short [facility] February 26, 2018 09:19
[2018-02-26] MEDS: INSULIN ASPART 1,000 UNITS/10 ML VIAL SQ SCH ×3 (10:15→18:37)
[2018-02-26] MEDS: NIFEdipine 30 MG SUSTAINED RELEASE TAB PO SCH (10:16)
[2018-02-26] MEDS: SODIUM CHLORIDE 0.9% FLUSH 10 ML FLUSH IV FLUSH SCH ×2 (10:16→21:00)
[2018-02-26] MEDS: INSULIN DETEMIR 100 UNITS/ML VIAL SQ SCH ×2 (10:16→22:35)
[2018-02-26] MEDS: INSULIN ASPART SUPPLEMENTAL SCALE SQ SCH ×4 (10:16→22:36)
--- NOTE | 2018-02-26 14:53 | RADRPT ---
EXAM DATE: 02/26/2018 2:49 PM EDT AGE/SEX: 48 years / Male INDICATIONS: Left leg wound. CLINICAL DATA: This is the patient's initial encounter. Patient reports that signs and symptoms have been present for 2 weeks and indicates a pain score of 6/10. Location: Laterality: MEDICAL/SURGICAL HISTORY: Hypercholesterolemia. Hypertension. Hemophilia. Diabetes. DVT. Neuro lavern. Endocrine disorder. . IVC filter. Right finger repair and skin graft. Left eye repair. COMPARISON: [facility] available for comparison. FINDINGS: Sonographic examination of the medial left ankle region reveals no discrete mass or collection. CONCLUSION: Negative Electronically signed by: Luis Khan MD 02/26/2018 2:52 PM EDT
[2018-02-26] MEDS: SODIUM CHLOR 0.9% 1000 ML INJ 1,000 ML IV SCH (15:30)
--- NOTE | 2018-02-26 15:55 | HHI.PR ---
Subjective Remarks Follow-up bilateral lower extremity wounds. Discussed with wound care. Patient complains of chronic pain and claudication. Patient has not been workup for PAD. Patient also states that he hurt his left leg. History of recurrent bilateral lower extremity DVT but has been noncompliant with anticoagulation. Was on several medications including Coumadin and Eliquis which he tolerated. He had IVC filter placed. Objective Vitals Vital Signs Date Time Temp Pulse Resp B/P (MAP) Pulse Ox O2 Delivery O2 Flow Rate FiO2 02/26/18 15:43 85 18 117/69 (85) 96 02/26/18 12:10 99.1 92 21 124/65 (84) 98 02/26/18 09:59 99.1 89 20 132/74 (93) 97 02/26/18 05:37 98.2 91 16 143/91 (108) 99 02/26/18 04:02 79 14 152/98 (116) 98 Room Air 02/26/18 02:04 93 16 138/81 (100) 97 Room Air 02/26/18 00:16 14 98 Room Air 02/25/18 23:25 98.4 104 17 181/93 (122) 99 I/O 02/25/18 02/25/18 02/25/18 02/26/18 02/26/18 02/26/18 07:00 15:00 23:00 07:00 15:00 23:00 Output Total 800 ml Balance -800 ml Output Urine Total 800 ml Result Diagram: 02/26/18 0010 02/26/18 0010 Imaging Last Impressions Lower Extremity Ultrasound 02/26/18 0000 Signed Impressions: CONCLUSION: Chest X-Ray 02/25/18 2352 Signed Impressions: Service Date/Time: Sunday, February 25, 2018 23:58 - CONCLUSION: Stable Midinspiratory chest exam. Micky Mckenna MD Objective Remarks GENERAL: This is a well-nourished, well-developed patient, in no apparent distress. SKIN: Multiple ulcerations noted on bilateral lower extremity. Largest one being on the left medial lower extremity below knee. CARDIOVASCULAR: Regular rate and rhythm without murmurs, gallops, or rubs. No JVD. RESPIRATORY: Clear to auscultation. Breath sounds equal bilaterally. No wheezes , rales, or rhonchi. GASTROINTESTINAL: Abdomen soft, non-tender, nondistended. No guarding. MUSCULOSKELETAL: Extremities without clubbing, cyanosis, or edema. Tender left calf NEUROLOGICAL: Awake and alert. Cranial nerves II through XII intact. No focal neurological deficits. Normal speech. Procedures none A/P Problem List: (1) DM (diabetes mellitus) ICD Code: E11.9 - Type 2 diabetes mellitus without complications Status: Acute (2) CKD (chronic kidney disease) ICD Code: N18.9 - Chronic kidney disease, unspecified Status: Acute (3) DVT, bilateral lower limbs ICD Code: I82.403 - Acute embolism and thrombosis of unspecified deep veins of lower extremity, bilateral Status: Acute Assessment and Plan Mr. Wade is a pleasant 48-year-old -[place] male with a history of diabetes mellitus and previous history of DVT who presents to the emergency department due to worsening pain of his chronic bilateral lower extremity own. Patient denies any chest pain, shortness of breath, fever or chills. Bilateral lower extremity wound hx venous stasis - No leukocytosis, no fever, chills and due to duration of 2 years, we will not continue any abx for now. - Will consult Wound care and wound care physician - Acetaminophen, tramadol for pain. Add Neurontin. Check SANTOS consider antiplatelets Diabetes mellitus - Medium sliding scale insulin, pre-meal insulin with aspart, Levemir 25 units twice daily. - Blood glucose improved TO 289. It was 420 upon admission. Check A1c Hypertension - Will start patient on Nifedipine 30mg Qday. Titrate up as needed. Mild CAESAR on CKD stage III - Creatinine 1.89. Baseline appears to be around 1.5 - 1.6. Start gentle IV hydration - Will avoid Lisinopril or Losartan for now. If improves, we will consider Losartain or Lisinopril. Bilateral lower extremity DVT status post IVC filter. Restart Eliquis if sonogram negative for hematoma Elevated lipase. Patient denies abdominal pain. Likely from decreased clearance from kidney disease. Repeat lipase in the morning Discharge Planning Possible discharge in the morning Titi Negron MD February 26, 2018 15:55
[2018-02-26 16:00] LABS: HEMOGLOBIN A1C 10.5 % (4.3-6.0)
--- NOTE | 2018-02-26 16:11 | PD.WOU.CON ---
Patient Intake Chief Complaint Bilateral leg ulcers Consult Requested by Dr. Negron Reason for Consult Management of bilateral leg ulcers with poorly controlled diabetes Primary Care Physician Yves Wilks MD History of Present Illness Patient known to me with a history of bilateral leg ulcers Coded Allergies: tramadol (Unverified Allergy, Mild, 02/25/18) tuberculin, purified protein deriva (Unverified Allergy, Unknown, 02/25/18) *MDRO Multi-Drug Resistant Organism (Verified Adverse Reaction, Unknown, ) MRSA (wound) - 2010, 2011, 2012, 03/2016, 06/2016 Preferred Language to Discuss: Nepali Barriers to Learning: None Teaching Method: Discussion Vital Signs Date Time Temp Pulse Resp B/P (MAP) Pulse Ox O2 Delivery O2 Flow Rate FiO2 02/26/18 15:43 85 18 117/69 (85) 96 02/26/18 12:10 99.1 92 21 124/65 (84) 98 02/26/18 09:59 99.1 89 20 132/74 (93) 97 02/26/18 05:37 98.2 91 16 143/91 (108) 99 02/26/18 04:02 79 14 152/98 (116) 98 Room Air 02/26/18 02:04 93 16 138/81 (100) 97 Room Air 02/26/18 00:16 14 98 Room Air 02/25/18 23:25 98.4 104 17 181/93 (122) 99 Past, Family & Social History Past Surgical History Gastrointestinal: DENIES HX OF: Colectomy, total Wound Assessment Wound Information - Wound One Wound Location: Right Medial ankle Wound Two Wound Location: Left medial ankle Wound Three Wound Location: Left anterior- medial leg- Proximal Lab and Radiology Results Radiology Last Impressions Lower Extremity Ultrasound 02/26/18 0000 Signed Impressions: CONCLUSION: Chest X-Ray 02/25/18 2352 Signed Impressions: Service Date/Time: Sunday, February 25, 2018 23:58 - CONCLUSION: Stable Midinspiratory chest exam. Micky Mckenna MD Assessment/Plan Problem List: (1) Venous stasis ulcers of both lower extremities Status: Acute (2) Diabetic foot ulcers Status: Acute (3) Poorly controlled diabetes mellitus Status: Acute (4) Diabetic neuropathy Status: Acute Tara Burris MD February 26, 2018 16:11
--- NOTE | 2018-02-26 16:45 | EKG ---
Date Performed: 02/26/2018 Time Performed: 00:35:44 PTAGE: 48 years EKG: SINUS TACHYCARDIA INDETERMINATE AXIS INCOMPLETE RIGHT BUNDLE BRANCH BLOCK ABNORMAL RHYTHM E CG PREVIOUS TRACING : 01/15/2017 17.57 Since the previous tracing, no significant change noted DOCTOR: Madan Byrd Interpretating Date/Time 02/26/2018 16:43:05
[2018-02-26] MEDS: GABAPENTIN 100 MG CAP PO SCH (18:37)
[2018-02-26] MEDS: APIXABAN 5 MG TABLET PO SCH (22:34)
[2018-02-27] MEDS: SODIUM CHLOR 0.9% 1000 ML INJ 1,000 ML IV SCH ×2 (00:37→10:00)
[2018-02-27] MEDS: ACETAMINOPHEN/HYDROcodone 325 MG/5 MG TAB PO PRN ×2 (00:37→09:44)
[2018-02-27 04:12] VITALS: BP 127/64; PULSE 86; RESP 16; O2SAT 96
[2018-02-27 08:40] VITALS: BP 117/69; PULSE 74; RESP 18; TEMP 98.7; O2SAT 98
[2018-02-27] MEDS: SODIUM CHLORIDE 0.9% FLUSH 10 ML FLUSH IV FLUSH SCH (09:00)
[2018-02-27 09:33] LABS: AUTOMATED NEUTROPHIL # 3.5 TH/MM3 (1.8-7.7); BASOPHIL % 0.4 % (0.0-2.0); EOSINOPHIL # 0.1 TH/MM3 (0-0.4); EOSINOPHIL % 2.3 % (0.0-4.0); HEMATOCRIT 38.2 % (39.0-51.0); HEMOGLOBIN 12.4 GM/DL (13.0-17.0); LYMPH % 32.3 % (9.0-44.0); MEAN CELL VOLUME 82.7 FL (80.0-100.0); MEAN CORPUSCULAR HEMOGLOBIN 26.8 PG (27.0-34.0); MEAN CORPUSCULAR HGB CONC 32.4 % (32.0-36.0); MEAN PLATELET VOLUME 8.4 FL (7.0-11.0); MONO % 7.5 % (0.0-8.0); MONOCYTE # 0.5 TH/MM3 (0-0.9); NEUT % 57.5 % (16.0-70.0); PLATELET COUNT 229 TH/MM3 (150-450); RED BLOOD COUNT 4.62 MIL/MM3 (4.50-5.90); RED CELL DISTRIBUTION WIDTH 14.7 % (11.6-17.2); WHITE BLOOD COUNT 6.1 TH/MM3 (4.0-11.0)
[2018-02-27] MEDS: INSULIN ASPART 1,000 UNITS/10 ML VIAL SQ SCH ×2 (09:43→12:00)
[2018-02-27] MEDS: INSULIN ASPART SUPPLEMENTAL SCALE SQ SCH ×2 (09:43→12:00)
[2018-02-27] MEDS: APIXABAN 5 MG TABLET PO SCH (09:43)
[2018-02-27] MEDS: NIFEdipine 30 MG SUSTAINED RELEASE TAB PO SCH (09:44)
[2018-02-27] MEDS: GABAPENTIN 100 MG CAP PO SCH (09:44)
[2018-02-27] MEDS: INSULIN DETEMIR 100 UNITS/ML VIAL SQ SCH (09:45)
[2018-02-27] MEDS: SODIUM HYPOCHLORITE 0.125% 500 ML BTL TOPICAL SCH (09:45)
[2018-02-27 10:03] LABS: BICARBONATE 22.5 MEQ/L (21.0-32.0); CALCIUM 8.1 MG/DL (8.5-10.1)
[2018-02-27 10:13] LABS: CREATININE 1.31 MG/DL (0.60-1.30)
--- NOTE | 2018-02-27 11:56 | HHI.PR ---
Subjective Remarks Follow-up bilateral lower extremity wounds. Patient has no new complaints tolerating Eliquis Objective Vitals Vital Signs Date Time Temp Pulse Resp B/P (MAP) Pulse Ox O2 Delivery O2 Flow Rate FiO2 02/27/18 08:40 98.7 74 18 117/69 (85) 98 02/27/18 04:12 86 16 127/64 (85) 96 02/26/18 23:52 97.4 85 16 141/79 (99) 97 02/26/18 15:43 85 18 117/69 (85) 96 02/26/18 12:10 99.1 92 21 124/65 (84) 98 I/O 02/26/18 02/26/18 02/26/18 02/27/18 02/27/18 02/27/18 07:00 15:00 23:00 07:00 15:00 23:00 Intake Total 582 ml Output Total 800 ml 50 ml Balance -800 ml 532 ml Intake Oral 582 ml Output Urine Total 800 ml 50 ml Result Diagram: 02/27/18 0900 02/27/18 0900 Imaging Last Impressions Lower Extremity Ultrasound 02/26/18 0000 Signed Impressions: CONCLUSION: Extremity Arterial Study 02/26/18 0000 Signed Impressions: CONCLUSION: Chest X-Ray 02/25/18 6412 Signed Impressions: Service Date/Time: Sunday, February 25, 2018 23:58 - CONCLUSION: Stable Midinspiratory chest exam. Micky Mckenna MD Objective Remarks GENERAL: This is a well-nourished, well-developed patient, in no apparent distress. SKIN: Multiple ulcerations noted on bilateral lower extremity. Largest one being on the left medial lower extremity below knee. CARDIOVASCULAR: Regular rate and rhythm without murmurs, gallops, or rubs. No JVD. RESPIRATORY: Clear to auscultation. Breath sounds equal bilaterally. No wheezes , rales, or rhonchi. GASTROINTESTINAL: Abdomen soft, non-tender, nondistended. No guarding. MUSCULOSKELETAL: Extremities without clubbing, cyanosis, or edema. Tender left calf NEUROLOGICAL: Awake and alert. Cranial nerves II through XII intact. No focal neurological deficits. Normal speech. Procedures none A/P Problem List: (1) DM (diabetes mellitus) ICD Code: E11.9 - Type 2 diabetes mellitus without complications Status: Acute (2) CKD (chronic kidney disease) ICD Code: N18.9 - Chronic kidney disease, unspecified Status: Acute (3) DVT, bilateral lower limbs ICD Code: I82.403 - Acute embolism and thrombosis of unspecified deep veins of lower extremity, bilateral Status: Acute Assessment and Plan Mr. Wade is a pleasant 48-year-old -[place] male with a history of diabetes mellitus and previous history of DVT who presents to the emergency department due to worsening pain of his chronic bilateral lower extremity own. Patient denies any chest pain, shortness of breath, fever or chills. Bilateral lower extremity wound hx venous stasis - No leukocytosis, no fever, chills and due to duration of 2 years, we will not continue any abx for now. - Consulted wound care and wound care physician - Continue Neurontin. SANTOS unremarkable Diabetes mellitus. Uncontrolled. Continue Levemir/Lantus 20 units twice a day and NovoLog 6 units 3 times a day. Diabetic education. Hypertension. Improving continue nifedipine Mild CAESAR on CKD stage III. Improving discontinue IV hydration consider Lisinopril. Bilateral lower extremity DVT status post IVC filter. Restart Eliquis, sonogram negative for hematoma Elevated lipase. Patient denies abdominal pain. Likely from decreased clearance from kidney disease. Repeat lipase improved Discharge Planning Discharge patient to home Condition on discharge: Improved Regular Diet as tolerated Ad Gloria activity Rx written: Eliquis, nifedipine, Neurontin and Dakin's solution Follow-up with primary care physician and wound care physician Titi Negron MD February 27, 2018 11:56
--- NOTE | 2018-02-27 11:58 | HHI.DCPOC ---
Discharge Care Plan Your Health Problems Are: Difficulty with ADL Exercise Tolerance Goals to Promote Your Health * To prevent worsening of your condition and complications * To maintain your health at the optimal level Directions to Meet Your Goals Take your medications as prescribed Follow your dietary instruction Follow activity as directed Keep your appointments as scheduled Take your immunizations and boosters as scheduled If your symptoms worsen call your PCP, if no PCP go to Urgent Care Center or Emergency Room Smoking is Dangerous to Your Health. Avoid second hand smoke Call the 24-hour hour crisis hotline for domestic abuse at Titi Negron MD February 27, 2018 11:58
[2018-02-27] MEDS ORDERED: NIFE30TA8 PO (12:05)
[2018-02-27] MEDS ORDERED: GABA100C4 PO (12:05)
[2018-02-27] MEDS ORDERED: DAKI0.12 TOPICAL (12:05)
[2018-02-27] MEDS ORDERED: LANTUS2P SQ (12:05)
[2018-02-27] MEDS ORDERED: APIX5TAB PO ×2 (12:05)
[2018-02-27] MEDS ORDERED: NOVOLOGSS SQ (12:05)
--- NOTE | 2018-02-27 12:14 | RADRPT ---
EXAM DATE: 02/27/2018 11:33 AM EDT AGE/SEX: 48 years / Male INDICATIONS: Infected chronic left leg ulcer CLINICAL DATA: This is the patient's initial encounter. Patient reports that signs and symptoms have been present for 2 weeks and indicates a pain score of 7/10. MEDICAL/SURGICAL HISTORY: . hypercholesterolemia, hypertension, hemophilia, diabetes mellitus, DVT, neuropathy, endocrine disorder, . IVC filter, right finger repair and skin graft, left eye rep air COMPARISON: No prior [facility] exams available for comparison. TECHNIQUE: Four-cuff ankle and brachial pressures were obtained. Pulse cuff waveform tracings of the ankles were recorded, and ankle-brachial indices were calculated. PRESSURES (mmHg): Brachial (arm) : RIGHT: 126, LEFT: 122 Ankle : RIGHT: 168, LEFT: 165 SANTOS : RIGHT: 1.33, LEFT: 1.31 TBI : RIGHT: 0.75, LEFT: 0.81 PULSED CUFF WAVEFORMS: Demonstrate normal amplitude bilaterally. CONCLUSION: Normal arterial segmental Doppler examination. Electronically signed by: Luis Dunlap MD 02/27/2018 12:13 PM EDT
[2018-02-27 12:38] VITALS: BP 151/89; PULSE 100; RESP 18; TEMP 98.4; O2SAT 99
== END 2018-02-27 14:31 | disposition home or self-care (01) ==
LOC: NEPE 23:20 → NEDA 02-26 02:51 → NEPHCDU 02-26 05:24
PROVIDERS: ADMIT Internal Medicine; ATTEND Internal Medicine
DX: E11.622 Type 2 diabetes mellitus with other skin ulcer (principal); L97.929 Non-pressure chronic ulcer of unspecified part of left lower leg with unspecified severity; L97.919 Non-pressure chronic ulcer of unspecified part of right lower leg with unspecified severity; I82.403 Acute embolism and thrombosis of unspecified deep veins of lower extremity, bilateral; I87.8 Other specified disorders of veins; B96.1 Klebsiella pneumoniae [K. pneumoniae] as the cause of diseases classified elsewhere; B96.5 Pseudomonas (aeruginosa) (mallei) (pseudomallei) as the cause of diseases classified elsewhere; I12.9 Hypertensive chronic kidney disease with stage 1 through stage 4 chronic kidney disease, or unspecified chronic kidney disease; N18.3 Chronic kidney disease, stage 3 (moderate); N17.9 Acute kidney failure, unspecified; Z79.01 Long term (current) use of anticoagulants; E78.00 Pure hypercholesterolemia, unspecified; E78.5 Hyperlipidemia, unspecified; I83.029 Varicose veins of left lower extremity with ulcer of unspecified site; G89.29 Other chronic pain; K59.09 Other constipation; Z79.4 Long term (current) use of insulin; Z86.711 Personal history of pulmonary embolism; Z86.718 Personal history of other venous thrombosis and embolism; Z91.14 Patient's other noncompliance with medication regimen
CPT/HCPCS: 71045; 76882; 80048; 80053; 81001; 82010; 82800; 82948; 83036; 83690; 83735; 85025; 86140; 87070; 87077; 87186; 87205; 93005; 93922; 96361; 96372; 96374; 96375; 99285; G0378; J1650; J1815; J2543; J3370; J7030; J7050